=== PATIENT | female | born 1970 | race Two or more races ===

== ENCOUNTER 2019-01-19 16:36 | Emergency (ER) | payer OTHER ==
[~2019-01-19] VITALS: Ht 165.1 cm; Wt 72.6 kg
[2019-01-19] MEDS ORDERED: KEPPRA750 MG (16:56)
== END 2019-01-19 21:42 | disposition home or self-care (01) ==
LOC: ER 16:36
DX: N93.8 Other specified abnormal uterine and vaginal bleeding (principal)